=== PATIENT | male | born 1995 | race Caucasian/White ===

== ENCOUNTER 2018-02-22 02:02 | Emergency (ER) | payer OTHER ==
--- NOTE | 2018-02-22 02:41 | EDPHY ---
H & P Stated Complaint: left foot LAC Time Seen by Provider: 02/22/18 02:23 HPI/ROS: HPI The patient presents with left toe laceration which occurred just prior to arrival. Patient was walking barefoot when a large chunk of glass cut his left great toe. He experienced a large amount of bleeding. He put on a pressure dressing which helped. He is having pain which is mild, constant, aching. He denies any numbness or tingling of the toe.. REVIEW OF SYSTEMS Constitutional: No fever, no chills. Skin: No rashes. Neurological: No headache. PMHx: Healthy Soc Hx: College student PHYSICAL General Appearance: Alert, no distress Eyes: Pupils equal and round no pallor or injection ENT, Mouth: Mucous membranes moist Respiratory: Breathing comfortably Neurological: A&O, sensation intact to great toe Skin: Warm and dry, no rashes Extremities: Left great toe with oblique 3 cm laceration which is gaping with no tendon injury or foreign body, full range of motion of the toe with brisk cap refill Psychiatric: Patient is oriented X 3, there is no agitation Source: Patient Exam Limitations: No limitations - Personal History Current Tetanus Diphtheria and Acellular Pertussis (TDAP): Yes - Medical/Surgical History Hx Asthma: No Hx Chronic Respiratory Disease: No Hx Diabetes: No Hx Cardiac Disease: No Hx Renal Disease: No Hx Cirrhosis: No Hx Alcoholism: No Hx HIV/AIDS: No Hx Splenectomy or Spleen Trauma: No - Social History Smoking Status: Never smoked Constitutional: Initial Vital Signs Temperature (C) 36.7 C 02/22/18 02:05 Heart Rate 68 02/22/18 02:05 Respiratory Rate 20 02/22/18 02:05 Blood Pressure 140/74 H 02/22/18 02:05 O2 Sat (%) 92 02/22/18 02:05 O2 Delivery Mode Room Air Allergies/Adverse Reactions: No Known Allergies Allergy (Unverified 02/22/18 02:05) Home Medications: Medication Instructions Recorded Lexapro 02/22/18 Medical Decision Making Procedures: LACERATION REPAIR Procedure: Laceration repair. Verbal consent was obtained from the patient. The linear 3 cm laceration on the dorsal surface of the great toe was anesthetized using lidocaine. The wound was scrubbed, draped and explored to its base with a gloved finger. There were no deep structures involved. No tendon injury was identified. . The wound was repaired with simple interrupted sutures using 4-0 0 Vicryl. The wound repair was simple. The procedure was performed by myself. Differential Diagnosis: This is a 22-year-old male who presents with left great toe laceration occurring just prior to arrival when he was cut with a piece of glass on the ground. He is neurovascularly intact. There does not appear to be any tendon injuries. Plan for laceration repair. He will be discharged home with return precautions. Departure - Departure Disposition: Home, Routine, Self-Care Clinical Impression: Laceration of toe of left foot Condition: Good Instructions: Care For Your Stitches (ED), Laceration (ED) Additional Instructions: Please keep the dressing on for the next 24 hr. You can then take it off and get your foot wet in the shower. Use antibiotic ointment on it at all times and keep it covered. The stitches should be removed in 7 days. You can return here to the emergency department for this. Referrals: [facility] Avel[facility],. [Clinic] - As per Instructions
[2018-02-22 04:27] VITALS: BP 128/76
== END 2018-02-22 04:26 | disposition home or self-care (01) ==
PROC: 0HQNXZZ Repair Left Foot Skin, External Approach (ICD-10-PCS; principal; 2018-02-22)
DX: S91.112A Laceration without foreign body of left great toe without damage to nail, initial encounter (principal); W25.XXXA Contact with sharp glass, initial encounter; Y99.8 Other external cause status; Y93.01 Activity, walking, marching and hiking